=== PATIENT | male | born 1995 | race Caucasian/White ===

== ENCOUNTER 2016-10-15 16:10 | Emergency (ER) | payer OTHER ==
--- NOTE | 2016-10-15 17:43 | RAD ---
Indication: Fall. Dull headache. Amnesia. Concussion symptoms. Comparison: None. Technique: Noncontrast CT vertex of skull through foramen magnum. Report: The sulci, ventricles, and basal cisterns are normal for age. Fiore matter white matter differentiation is preserved without evidence for edema. No intra or extra axial hemorrhage is detected. Unremarkable orbital contents. Negative for calvarial or skull base fracture. Negative for scalp hematoma. The visualized paranasal sinuses and mastoid air spaces are clear. IMPRESSION: Negative for CT stigmata of traumatic brain injury.
--- NOTE | 2016-10-15 17:49 | ED ---
Head Injury - HPI Summary HPI Summary: Pt here w/ fall while downhill speed skiing through [facility] about 2.5 hours ago. Pt is here w/ a teammate who reports incident as pt has no recollection of fall nor any events from today. Pt states he has a dull MEDINA but otherwise feels fine. Denies photophobia, phonophobia, nausea, vomiting, face/neck pain, numbness, tingling, weakness. Pt's teammate reports he was seen falling by sole skiver and a few teammates - he was not around trees when this happened and was able to ski to the bottom of the hill after. Was questioned by sole skiver who reports to pt's teammate via text he was alert and DARRON however looked like he hit pretty hard along Lt side of face. After more discussion, pt's teammate contacted pt's father who reports pt had a fall Sep 23 2016 while skiing in [facility] resulting in a moderate concussion. Went to a medical facility there but imaging unit was closed at the time. Has had mild MEDINA's since and family has been providing him w/ acetaminophen PRN. Then on October 08 while in [place], pt was jet skiing with his sister and reported the vibrations from the jet ski produced another MEDINA. Pt' s father told pt's teammate who's here w/ him today that he thought the pt agreed not to ski for a while but after today's events, states "I guess not". - History Of Current Complaint Chief Complaint: EDHeadInjury Stated Complaint: HEAD INJURY Time Seen by Provider: 10/15/16 16:24 Hx Obtained From: Patient, Family/Sales And Events Coordinator - pt's teammate, pt's father via text and sole skiver staff Pain Intensity: 1 PMH/Surg Hx/FS Hx/Imm Hx Previously Healthy: No - recovering from concussion Endocrine/Hematology History: Denies: Hx Anticoagulant Therapy, Hx Blood Disorders, Hx Unexplained Bleeding Neurological History: Reports: Other Neuro Impairments/Disorders - moderate concussion 09/23/2016 w/ intermittent dull MEDINA since Infectious Disease History: No Infectious Disease History: Denies: Traveled Outside the [place] in Last 30 Days - Family History Known Family History: Positive: None - Social History Occupation: Student Lives: With Family - roommate at [employer] Alcohol Use: binging on weekends Alcohol Amount: "typical college kid amount" Hx Substance Use: Yes Substance Use Type: Reports: Marijuana - occasionally. Denies: Cocaine, Heroin , Synthetic Drugs, Sedatives, Tranquilizers Hx Tobacco Use: No Smoking Status (MU): Never Smoked Tobacco Review of Systems Negative: Fatigue Negative: Photophobia, Blurred Vision, Diplopia Negative: Dental Pain, Sore Throat, Ear Ache, Nasal Discharge Negative: Chest Pain Negative: Shortness Of Breath Negative: Abdominal Pain, Vomiting, Diarrhea, Nausea Negative: burning, dysuria, frequency, flank pain, hematuria Negative: Arthralgia, Myalgia, Decreased ROM Negative: Rash, Bruising Neurological: Other - see HPI Positive: Headache - see HPI. Negative: Weakness, Paresthesia, Numbness, Syncope, Slurred Speech Psychological: Normal All Other Systems Reviewed And Are Negative: Yes Physical Exam Triage Information Reviewed: Yes Vital Signs On Initial Exam: Initial Vitals Temp Pulse Resp BP Pulse Ox 98.2 F 82 20 132/75 100 10/15/16 16:12 10/15/16 16:12 10/15/16 16:12 10/15/16 16:12 10/15/16 16:12 Vital Signs Reviewed: Yes Appearance: Positive: Well-Appearing, No Pain Distress, Well-Nourished Skin: Positive: Warm, Dry - no signs of skin trauma over face, scalp Head/Face: Positive: Normal Head/Face Inspection - NTTP, no gross deformity Eyes: Positive: Normal, EOMI, DARRON, Conjunctiva Clear ENT: Positive: Normal ENT inspection, Hearing grossly normal, Pharynx normal, TMs normal - no hemotympanum. Negative: Nasal drainage - no signs of epistaxis Dental: Negative: Dental Fracture @ Neck: Positive: Supple, Nontender Respiratory/Lung Sounds: Positive: Clear to Auscultation, Breath Sounds Present. Negative: Subcutaneous Emphysema, Stridor, Tracheal Deviation Cardiovascular: Positive: Normal, RRR, Pulses are Symmetrical in both Upper and Lower Extremities, S1, S2 Abdomen Description: Positive: Nontender, No Organomegaly, Soft Bowel Sounds: Positive: Present Musculoskeletal: Positive: Normal, Strength/ROM Intact Neurological: Positive: Normal, Sensory/Motor Intact, Alert, Oriented to Person Place, Time - pt has recall of terminal carman memory regarding events from this week and has memory from conversation tonight however has no recollection of events from today, starting at this morning and past skiing injury until being brought here, CN Intact II-III, Normal Gait, Finger to Nose, Facial Symmetry, Speech Normal, Other - balance assesed standing single leg and this is slightly off ( pt admits this is off from his baseline as well) - appears coordinated otherwise. Negative: Cerebellar Dysfunction, Disoriented, Rhomberg, Pronator Drift Present Psychiatric: Positive: Normal Diagnostics - Vital Signs Vital Signs Temp Pulse Resp BP Pulse Ox 10/15/16 16:12 98.2 F 82 20 132/75 100 - Laboratory Lab Statement: Any lab studies that have been ordered have been reviewed, and results considered in the medical decision making process. Re-Evaluation - Re-Evaluation First Eval Change: Improved - pt is recalling some events prior to leaving Head Injury Course/Dx Course Of Treatment: Pt has acquired a second concussion within 3 weeks and w/o complete healing of primary concussion (still has intermittent MEDINA's triggered by stimulation). CT clear of acute hemorrhage, edema, etc and pt's memory improved somewhat during course of stay. Lengthy discussion with pt, pt's teammate and pt's father about his injury and the importance of healing. All parties vocalize committment to healing and will return to ED if danger s/sx present. Pt advised to f/u [facility] as well as making an appointment with neurology. - Diagnoses Provider Diagnoses: Unwitnessed fall, Repeated concussion of brain, Retrograde amnesia, Balance problem Discharge - Discharge Plan Condition: Stable Disposition: HOME Patient Education Materials: Concussion (ED), Head Injury (ED) Forms: *School Release Referrals: [facility] Albarado [facility]Medical Doctor[facility] - Additional Instructions: You have sustained repetitive brain injuries. You should not be left alone given your current state of amnesia. It is important that you follow-up with your student health center as well as a neurologist this week. Call Tuesday to schedule an appointment. If your symptoms worsen in the meantime, return to ED. AVOID: *all physical activity *caffeine *jarring head/body movements Read discharge instructions about your injuries for a better understanding.
[2016-10-15 18:45] VITALS: BP 120/63
== END 2016-10-15 18:34 | disposition home or self-care (01) ==
LOC: ED 16:10
DX: S06.0X9A Concussion with loss of consciousness of unspecified duration, initial encounter (principal); R41.2 Retrograde amnesia; R26.89 Other abnormalities of gait and mobility; V00.321A Fall from snow-skis, initial encounter; Y93.23 Activity, snow (alpine) (downhill) skiing, snowboarding, sledding, tobogganing and snow tubing; Y92.9 Unspecified place or not applicable
CPT/HCPCS: 70450; 99282